=== PATIENT | male | born 1965 | race Caucasian/White ===

== ENCOUNTER 2018-04-10 13:10 | Emergency (ER) | payer MEDICARE ==
[2018-04-10] MEDS ORDERED: Metoclopramide HCl 10 MG/2 ML VIAL ONE (13:36)
[2018-04-10] MEDS ORDERED: Lorazepam 2 MG/ML VIAL ONE (13:36)
[2018-04-10] MEDS ORDERED: Acetaminophen 500 MG TAB ONE (13:36)
[2018-04-10 13:46] LABS: #Eosinphils 0.1 thou/uL (0.0-0.7); #Lymphocytes 1.4 thou/uL (1.20-3.40); #Monocytes 0.6 thou/uL (0.11-0.59); #Neutrophils 6.2 thou/uL (1.40-6.50); %Basophils 0.5 % (0.0-1.0); %Eosinophils 1.1 % (0.0-10.0); %Lymphocytes 16.6 % (21.0-51.0); %Monocytes 7.4 % (0.0-10.0); %Neutrophils 74.4 % (42.0-75.0); Hemoglobin 14.1 g/dL (14.0-18.0); Mean Corpuscular HGB CONC 32.1 g/dL (32.0-36.0); Mean Corpuscular Hemoglobin 30.2 pg (27.0-31.0); Mean Corpuscular Volume 94.1 fL (78.0-98.0); Mean Platelet Volume 7.1 fL (7.4-10.4); Platelet Count 232 thou/uL (130-400); RBC Distribution Width 12.6 % (11.5-14.5); Red Blood Cell (RBC) Count 4.66 mill/uL (4.70-6.10); White Blood Cell (WBC) Count 8.3 thou/uL (4.8-10.8)
[2018-04-10 13:53] LABS: PTT 25.7 SEC (22.9-36.1)
[2018-04-10 13:54] LABS: Prothrombin Time 12.8 SEC (12.0-14.7)
--- NOTE | 2018-04-10 13:54 | RAD ---
PORTABLE CHEST ONE VIEW: Date: 04-10-18 Time: 12:43 p.m. History: Stroke. FINDINGS: Comparison is made with exam of 09-01-17. Heart size is normal. The lungs are well expanded without focal areas of consolidation, pneumothorax, or pleural effusions. There are post op changes in the right humeral head. Degenerative changes are seen in the right shoulder joint. IMPRESSION: No acute process. POS: [facility]
[2018-04-10 14:04] LABS: ALT (SGPT) 102 U/L (8-55); AST (SGOT) 57 U/L (5-34); Acetaminophen Less than 6.0 mcg/mL (10.0-30.0); Albumin 4.5 g/dL (3.5-5.0); Alcohol Less than 10 mg/dL (Less than 10); Alkaline Phosphatase 79 U/L (40-150); Anion Gap 11 mmol/L (10-20); BUN (Urea Nitrogen) 12 mg/dL (8.9-20.6); Bilirubin, Total 0.4 mg/dL (0.2-1.2); Calc. Creatinine Clearance 0 mL/min (70-130); Calcium 9.7 mg/dL (7.8-10.44); Carbon Dioxide 30 mmol/L (22-29); Chloride 101 mmol/L (98-107); Estimated GFR-MDRD 67; Globulin 3.9 g/dL (2.4-3.5); Glucose 121 mg/dL (70-105); Magnesium 1.7 mg/dL (1.6-2.6); Potassium 4.7 mmol/L (3.5-5.1); Protein, Total 8.4 g/dL (6.0-8.3); Salicylate Less than 8.0 mg/dL (15.0-30.0); Sodium 137 mmol/L (136-145)
[2018-04-10 14:09] LABS: CKMB 1.6 ng/mL (0-6.6); Troponin I Less than 0.010 ng/mL (< 0.028)
--- NOTE | 2018-04-10 14:22 | CT ---
CT HEAD NONCONTRAST: INDICATIONS: Pain. FINDINGS: There is no evidence of acute intracranial hemorrhage, mass effect, midline shift, or ventriculomegal y. No acute paranasal sinus fluid level. IMPRESSION: No acute intracranial abnormalities. POS: [facility]
[2018-04-10 15:01] LABS: Bilirubin Negative (Negative); Blood, Urine Negative (Negative); Clarity CLEAR (Clear); Glucose, Urine (Dipstick) Negative (Negative); Leukocyte Negative (Negative); Nitrite Negative (Negative); Protein, Urine (Dipstick) Negative (Neg-Trace)
== END 2018-04-10 16:10 | disposition home or self-care (01) ==
LOC: ERS 13:10
DX: I10 Essential (primary) hypertension (principal); R51 Headache; J45.909 Unspecified asthma, uncomplicated; F41.9 Anxiety disorder, unspecified; F31.9 Bipolar disorder, unspecified; G47.00 Insomnia, unspecified; F17.210 Nicotine dependence, cigarettes, uncomplicated
CPT/HCPCS: 36415; 70450; 71045; 80053; 80307; 81003; 82140; 82553; 83735; 84443; 84484; 85025; 85610; 85730; 93005; 96365; 96366; 96375; J2060; J2765

== ENCOUNTER 2018-11-14 12:12 | Emergency (ER) | payer MEDICARE ==
[2018-11-14] MEDS ORDERED: Morphine 4 MG/ML VIAL ONE (13:18)
== END 2018-11-14 13:25 | disposition home or self-care (01) ==
LOC: ERS 12:12
DX: G89.29 Other chronic pain (principal); M25.551 Pain in right hip; I10 Essential (primary) hypertension; J45.909 Unspecified asthma, uncomplicated; F41.9 Anxiety disorder, unspecified; F31.9 Bipolar disorder, unspecified; G47.00 Insomnia, unspecified; F17.290 Nicotine dependence, other tobacco product, uncomplicated; Z79.891 Long term (current) use of opiate analgesic; Z79.899 Other long term (current) drug therapy
CPT/HCPCS: 96372; J2270

== ENCOUNTER 2020-04-07 16:16 | Emergency (ER) | payer MEDICARE | END 2020-04-07 18:11 | disposition left against medical advice (07) | LOC: ERS 16:16 | DX: Z53.21 Procedure and treatment not carried out due to patient leaving prior to being seen by health care provider (principal) | CPT/HCPCS: 93005 ==

== ENCOUNTER 2021-09-30 19:14 | Emergency (ER) | payer MEDICARE, SELFPAY ==
[2021-09-30] MEDS ORDERED: Ketorolac Tromethamine 30 MG/ML VIAL ONE (19:44)
[2021-09-30] MEDS ORDERED: methylPREDNISolone Sod Succ/PF 125 MG/2 ML VIAL ONE (19:44)
[2021-09-30] MEDS ORDERED: Lidocaine Viscous Sol 2% 15 ml UD Cup ONE (20:17)
[2021-09-30] MEDS ORDERED: Mag-Al 1200 mg/1200 mg/30 ML UDCUP ONE (20:17)
== END 2021-09-30 22:57 | disposition home or self-care (01) ==
LOC: ERS 19:14
DX: M54.50 Low back pain, unspecified (principal); G89.29 Other chronic pain; I10 Essential (primary) hypertension; F17.210 Nicotine dependence, cigarettes, uncomplicated; Z79.899 Other long term (current) drug therapy
CPT/HCPCS: 96374; 96375; J1885; J2930

== ENCOUNTER 2021-10-20 20:03 | Emergency (ER) | payer MEDICARE ==
[2021-10-20] MEDS ORDERED: Morphine 4 MG/ML VIAL ONE (23:44)
== END 2021-10-21 00:10 | disposition home or self-care (01) ==
LOC: ERS 20:03
DX: M79.661 Pain in right lower leg (principal); I10 Essential (primary) hypertension; F17.210 Nicotine dependence, cigarettes, uncomplicated
CPT/HCPCS: 96372; J2270